=== PATIENT | male | born 1960 | race Caucasian/White ===

== ENCOUNTER → 2016-07-20 | Outpatient (CLI) | payer OTHER ==
[2016-07-20 09:57] LABS: BASO % 0.5 % (0.0-1.0); EOS # 0.2 10*3/uL (0.0-0.4); EOS % 2.4 % (1.0-4.0); HEMATOCRIT 39.6 % (42.0-52.0); HEMOGLOBIN 13.6 g/dl (14.0-18.0); LYMPH # 1.8 10*3/uL (1.3-4.4); LYMPH % 27.7 % (27.0-41.0); MEAN CELL VOLUME 96.4 fl (80.0-94.0); MEAN CORPUSCULAR HGB 33.1 pg (27.0-31.0); MEAN CORPUSCULAR HGB CONC 34.3 g/dl (33.0-37.0); MEAN PLATELET VOLUME 9.8 fl (9.6-12.3); MONO # 0.9 10*3/uL (0.1-1.0); MONO % 12.9 % (3.0-9.0); NEUT # 3.7 10*3/uL (2.3-7.9); NEUT % 56.2 % (47.0-73.0); PLATELET COUNT AUTOMATED 253 10*3/uL (130-400); RED BLOOD COUNT 4.11 10*6/uL (4.50-5.90); RED CELL DISTRI WIDTH 12.2 % (0-14.5); WHITE BLOOD COUNT 6.6 10*3/uL (4.8-10.8)
== END | disposition home or self-care (01) ==
LOC: LAB 09:45
DX: F20.9 Schizophrenia, unspecified (principal)

== ENCOUNTER → 2017-01-05 | Outpatient (CLI) | payer MEDICARE | END | disposition home or self-care (01) | LOC: NM 06:34 | DX: M17.0 Bilateral primary osteoarthritis of knee (principal) ==

== ENCOUNTER 2017-08-03 10:37 | Inpatient (IN) | payer OTHER ==
[2017-08-03] VITALS (7 sets, daily range): BP systolic 132–150; BP diastolic 80–96
[~2017-08-03] VITALS: Ht 175.3 cm; Wt 88.5 kg
--- NOTE | ~2017-08-03 | CON ---
[place], [place] REPORT OF CONSULTATION NAME: ARLENE PORTILLO UNIT #: [id number] ROOM: 506 DOCTOR: JIMI OSWALD MD BIRTHDATE: [birth year] DOS: 08/05/2017 CHIEF COMPLAINT: "That medicine makes me really tired during the day." HISTORY OF PRESENT ILLNESS: This is a 57-year-old white male who presented to the Emergency Room at [facility] via EMS, sent from a local [place] clinic. The patient lives in a alf home in [place]. 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 Once [facility], he was found to be very lethargic and had a persistent cough. It was felt that he needed to be admitted medically to rule out organic factors. During the course of his initial stay in the hospital, the patient did report that the [facility] did adjust his Clozaril, increasing the daytime dosage causing him a great deal of sedation and lethargy. The patient has a lengthy history of schizophrenia, but currently denies any active symptoms. PAST MEDICAL HISTORY: Remarkable for schizoaffective disorder, peptic ulcer disease, hyperlipidemia, osteoarthritis. MENTAL STATUS: The patient is alert and oriented with some time gaps. Mood does seem to be fairly euthymic. Affect appropriate. There are no symptoms of hypomania or santiago. There are no overt auditory or visual hallucinations. No delusions, no paranoia. Short, intermediate, and long-term memory are intact. DIAGNOSIS: Chronic schizophrenia, undifferentiated type. PLAN: He is currently on Clozaril 200 mg b.i.d. Pharmacologically, there is no advantage to breaking the dose up, so I will change it to 400 mg at bedtime. This should lessen the daytime somnolence and help him be more energetic and interactive. He convincingly denies the presence of psychotic symptomatology and does not feel that he needs to be admitted to the [facility] and I tend to agree. He should follow up [facility] when medically stable. JIMI OSWALD MD CM:CONSTR:REPORT OF CONSULTATION 4 08/05/1739 interface
[2017-08-03 11:21] LABS: HEMATOCRIT 36.7 % (42.0-52.0); HEMOGLOBIN 12.6 g/dl (14.0-18.0); MEAN CELL VOLUME 94.1 fl (80.0-94.0); MEAN CORPUSCULAR HGB 32.3 pg (27.0-31.0); MEAN CORPUSCULAR HGB CONC 34.3 g/dl (33.0-37.0); MEAN PLATELET VOLUME 9.7 fl (9.6-12.3); PLATELET COUNT AUTOMATED 325 10*3/uL (130-400); RED CELL DISTRI WIDTH 12.4 % (0-14.5); WHITE BLOOD COUNT 6.8 10*3/uL (4.8-10.8)
[2017-08-03 11:30] LABS: ACT PARTIAL THROMBO TIME 28.8 SECONDS (20.8-31.5)
[2017-08-03 11:39] LABS: ALBUMIN 3.7 gm/dl (3.1-4.5); ALKALINE PHOSPHATASE 56 U/L (45-117); BUN 12 mg/dl (7-24); CHLORIDE 100 mmol/L (98-107); CREATININE 0.63 mg/dL (0.70-1.30); LIPASE 123 U/L (73-393); POTASSIUM 4.5 mmol/L (3.5-5.1); SGOT/AST 20 IU/L (3-35); SGPT/ALT 26 U/L (12-78); SODIUM 132 mmol/L (136-145); TOTAL CELLS COUNTED 100 #CELLS; TOTAL PROTEIN 7.5 gm/dL (6.4-8.2); TROPONIN I < 0.015 ng/ml (<0.045)
[2017-08-03 11:40] LABS: BURR CELLS MODERATE; PLATELET SUFFICIENCY NORMAL (NORMAL)
[2017-08-03] MEDS ORDERED: ASPIR LOW81 MG PO (11:47)
[2017-08-03] MEDS ORDERED: PROVENTIL HFA6.7 GM IH (11:47)
[2017-08-03] MEDS ORDERED: CLOZAPINE100 MG PO (11:48)
[2017-08-03] MEDS ORDERED: DEPAKOTE ER250 MG PO (11:49)
[2017-08-03] MEDS ORDERED: DOCUSATE SOD100 MG PO (11:50)
[2017-08-03 12:50] LABS: BILIRUBIN NEGATIVE (NEGATIVE); BLOOD NEGATIVE (NEGATIVE); CLARITY CLOUDY (CLEAR); COLOR YELLOW (YELLOW); GLUCOSE TRACE (NEGATIVE); KETONE TRACE (NEGATIVE); LEUKO ESTERASE NEGATIVE (NEGATIVE); NITRITE NEGATIVE (NEGATIVE); PH 7.5 (5.0-9.0)
[2017-08-03 12:56] LABS: URINE AMPHETAMINES < 1000 (1000ng/ml); URINE BARBITURATES < 200 (200ng/ml); URINE BENZODIAZEPINES < 200 (200ng/ml); URINE CANNABINOIDS (THC) < 50 (50ng/ml); URINE COCAINE < 300 (300ng/ml); URINE METHADONE < 300 (300ng/ml); URINE OPIATES < 300 (300ng/ml)
[2017-08-03 12:57] LABS: URINE PHENCYCLIDINE < 25 (25ng/ml)
[2017-08-03 13:05] LABS: BACTERIA 2+
[2017-08-03 13:06] LABS: MUCOUS 1+
[2017-08-03 15:15] LABS: ABG HCO3 22.5 mmol/l (22-26); ABG O2 SATURATION 92.9 % (95-97); ARTERIAL BLOOD GAS PCO2 30.8 mmHg (35-45); ARTERIAL BLOOD GAS PH 7.475 (7.35-7.45); ARTERIAL BLOOD GAS PO2 66.1 mmHg (80-90)
[2017-08-03] MEDS ORDERED: ZOCOR40 MG PO (16:00)
[2017-08-03] MEDS ORDERED: MULTIPLE VITAM1 EAC2 PO (16:00)
[2017-08-04] VITALS: BP 135/89
[2017-08-04 06:56] LABS: HEMATOCRIT 35.2 % (42.0-52.0); HEMOGLOBIN 12.1 g/dl (14.0-18.0); MEAN CELL VOLUME 94.9 fl (80.0-94.0); MEAN CORPUSCULAR HGB 32.6 pg (27.0-31.0); MEAN CORPUSCULAR HGB CONC 34.4 g/dl (33.0-37.0); MEAN PLATELET VOLUME 9.7 fl (9.6-12.3); PLATELET COUNT AUTOMATED 355 10*3/uL (130-400); RED BLOOD COUNT 3.71 10*6/uL (4.50-5.90); RED CELL DISTRI WIDTH 12.4 % (0-14.5); WHITE BLOOD COUNT 6.1 10*3/uL (4.8-10.8)
[2017-08-04 07:09] LABS: ALBUMIN 3.1 gm/dl (3.1-4.5); ALKALINE PHOSPHATASE 55 U/L (45-117); BUN 9 mg/dl (7-24); CHLORIDE 103 mmol/L (98-107); CHOLESTEROL 103 mg/dL (<200); CREATININE 0.66 mg/dL (0.70-1.30); FREE T4 1.34 ng/dl (0.76-1.46); HDL CHOLESTEROL 48 mg/dl (40-60); LDL CHOLESTEROL 32 mg/dL (9-159); PHOSPHOROUS 2.7 mg/dL (2.5-4.9); SGOT/AST 20 IU/L (3-35); SGPT/ALT 26 U/L (12-78); SODIUM 133 mmol/L (136-145); TOTAL PROTEIN 6.9 gm/dL (6.4-8.2); TRIGLYCERIDES 113 mg/dl (<150); VLDL CHOLESTEROL 23 mg/dL (6-40)
[2017-08-04 07:31] LABS: ATYPICAL LYMPHS 4 % (0-0); BASOPHILS 1 % (0-1); PLATELET SUFFICIENCY NORMAL (NORMAL); TOTAL CELLS COUNTED 100 #CELLS
[2017-08-04 07:32] LABS: ACANTHOCYTES FEW; BURR CELLS MODERATE
[2017-08-04 07:35] LABS: VITAMIN D, 25-HYDROXY 48.4 ng/mL (30-100)
[2017-08-04 08:00] VITALS: BP 131/82
[2017-08-04 12:00] VITALS: BP 122/82
[2017-08-04 16:00] VITALS: BP 148/65
[2017-08-04 20:00] VITALS: BP 119/51
[2017-08-05] VITALS: BP 125/72
[2017-08-05 07:24] LABS: BASO # 0.1 10*3/uL (0.0-0.1); BASO % 0.8 % (0.0-1.0); EOS # 0.1 10*3/uL (0.0-0.4); EOS % 1.7 % (1.0-4.0); HEMATOCRIT 36.8 % (42.0-52.0); HEMOGLOBIN 12.6 g/dl (14.0-18.0); LYMPH # 2.3 10*3/uL (1.3-4.4); LYMPH % 34.8 % (27.0-41.0); MEAN CELL VOLUME 95.1 fl (80.0-94.0); MEAN CORPUSCULAR HGB 32.6 pg (27.0-31.0); MEAN CORPUSCULAR HGB CONC 34.2 g/dl (33.0-37.0); MEAN PLATELET VOLUME 9.3 fl (9.6-12.3); MONO # 1.1 10*3/uL (0.1-1.0); MONO % 16.1 % (3.0-9.0); NEUT # 2.9 10*3/uL (2.3-7.9); NEUT % 44.3 % (47.0-73.0); PLATELET COUNT AUTOMATED 392 10*3/uL (130-400); RED BLOOD COUNT 3.87 10*6/uL (4.50-5.90); RED CELL DISTRI WIDTH 12.4 % (0-14.5); WHITE BLOOD COUNT 6.6 10*3/uL (4.8-10.8)
[2017-08-05 07:51] LABS: BUN 13 mg/dl (7-24); CHLORIDE 103 mmol/L (98-107); CREATININE 0.69 mg/dL (0.70-1.30); SODIUM 134 mmol/L (136-145)
[2017-08-05 08:00] VITALS: BP 115/68
[2017-08-05] MEDS ORDERED: LACTULOSE20 GM/30 M PO (11:41)
[2017-08-05 12:00] VITALS: BP 131/70
== END 2017-08-05 15:52 | disposition home or self-care (01) | DRG 441 ==
LOC: ED 10:37 → EDHOLD 13:39 → 5E 13:39
PROVIDERS: Emergency Medicine; Registered Nurse; Student in an Organized Health Care Education/Training Program
DX: K72.90 Hepatic failure, unspecified without coma (principal); G93.41 Metabolic encephalopathy; E72.20 Disorder of urea cycle metabolism, unspecified; J18.9 Pneumonia, unspecified organism; M19.90 Unspecified osteoarthritis, unspecified site; E78.5 Hyperlipidemia, unspecified; F20.9 Schizophrenia, unspecified; E78.00 Pure hypercholesterolemia, unspecified; R03.0 Elevated blood-pressure reading, without diagnosis of hypertension; Z72.0 Tobacco use; Z87.11 Personal history of peptic ulcer disease; Z85.9 Personal history of malignant neoplasm, unspecified; Z88.8 Allergy status to other drugs, medicaments and biological substances; Z79.899 Other long term (current) drug therapy; Z79.82 Long term (current) use of aspirin; Z71.6 Tobacco abuse counseling

== ENCOUNTER → 2018-12-18 | Outpatient (CLI) | payer MEDICARE ==
[~2018-12-18] MED LIST: ASPIR LOW81 MG PO; CLOZAPINE100 MG PO; DEPAKOTE ER250 MG PO; DOCUSATE SOD100 MG PO; LACTULOSE20 GM/30 M PO; MULTIPLE VITAM1 EAC2 PO; PROVENTIL HFA6.7 GM IH; ZOCOR40 MG PO
== END | disposition home or self-care (01) ==
LOC: MRI 09:19
DX: S83.512A Sprain of anterior cruciate ligament of left knee, initial encounter (principal); S83.242A Other tear of medial meniscus, current injury, left knee, initial encounter; M17.12 Unilateral primary osteoarthritis, left knee; M25.462 Effusion, left knee; X58.XXXA Exposure to other specified factors, initial encounter; Y93.89 Activity, other specified; Y92.89 Other specified places as the place of occurrence of the external cause; Y99.8 Other external cause status

== ENCOUNTER 2021-07-11 21:32 | Emergency (ER) | payer MEDICARE ==
[~2021-07-11] VITALS: Ht 175.2 cm; Wt 72.6 kg
[2021-07-12] MEDS ORDERED: CYCLOBENZAPRINE10 MG PO (02:21)
== END 2021-07-12 03:11 | disposition home or self-care (01) ==
LOC: ED 21:32
DX: S16.1XXA Strain of muscle, fascia and tendon at neck level, initial encounter (principal); X58.XXXA Exposure to other specified factors, initial encounter; Y93.89 Activity, other specified; Y92.89 Other specified places as the place of occurrence of the external cause; Y99.8 Other external cause status

== ENCOUNTER 2024-06-18 16:10 | Emergency (ER) | payer MEDICARE ==
[~2024-06-18] VITALS: Ht 175.2 cm; Wt 72.6 kg
[~2024-06-18 16:10] MED LIST changes: +CYCLOBENZAPRINE10 MG PO
[2024-06-18] MEDS ORDERED: METHOCARBAMOL 500 MG TAB PO ONE (19:15)
[2024-06-18] MEDS ORDERED: Ketorolac Tromethamine 60 MG/2 ML VIAL IM ONE (19:15)
[2024-06-18] MEDS ORDERED: NAPROXEN250 MG PO (19:20)
[2024-06-18] MEDS ORDERED: METHOCARBAMOL500 M1 PO (19:20)
== END 2024-06-18 19:30 | disposition home or self-care (01) ==
LOC: ED 16:10
DX: S39.012A Strain of muscle, fascia and tendon of lower back, initial encounter (principal); G89.29 Other chronic pain; M25.562 Pain in left knee; M25.551 Pain in right hip; M54.2 Cervicalgia; E78.5 Hyperlipidemia, unspecified; F10.20 Alcohol dependence, uncomplicated; F17.200 Nicotine dependence, unspecified, uncomplicated; Z88.8 Allergy status to other drugs, medicaments and biological substances; Z98.890 Other specified postprocedural states; X58.XXXA Exposure to other specified factors, initial encounter; Y93.89 Activity, other specified; Y92.009 Unspecified place in unspecified non-institutional (private) residence as the place of occurrence of the external cause; Y99.8 Other external cause status

== ENCOUNTER → 2025-02-14 | Outpatient (CLI) | payer OTHER ==
[~2025-02-14] MED LIST changes: +METHOCARBAMOL500 M1 PO; +NAPROXEN250 MG PO
== END | disposition home or self-care (01) ==
LOC: MRI 10:44
PROVIDERS: ATTEND Family Medicine
DX: M47.816 Spondylosis without myelopathy or radiculopathy, lumbar region (principal); M51.372 Other intervertebral disc degeneration, lumbosacral region with discogenic back pain and lower extremity pain; M48.07 Spinal stenosis, lumbosacral region; S83.512D Sprain of anterior cruciate ligament of left knee, subsequent encounter; X58.XXXD Exposure to other specified factors, subsequent encounter